=== PATIENT | female | born 1945 | race Caucasian/White ===

== ENCOUNTER 2021-10-15 17:13 | Inpatient (IN) ==
[2021-10-15] MEDS ORDERED: D5% in Water 1,000 ML IVC PRN (18:29)
[2021-10-15] MEDS ORDERED: *HR* Dextrose 50 % in Water (Syg) 50 ML SYRINGE IVP PRN (18:29)
[2021-10-15] MEDS ORDERED: Dextrose 4 GM Chewable Tablets PO PRN ×2 (18:29)
[2021-10-15] MEDS ORDERED: Insulin DETEMIR 100 UNIT/ML per UNIT SUBQ ONE (21:00)
[2021-10-15] MEDS ORDERED: Insulin LISPRO 300 UNITS/3 ML VIAL SUBQ SCH (21:00)
[2021-10-15] MEDS: carvediloL 25 MG TABLET PO SCH (21:39)
[2021-10-16] MEDS: hydrALAZINE 25 MG TABLET PO SCH ×3 (01:20→17:23)
[2021-10-16] MEDS ORDERED: *HR* Enoxaparin 40 MG/0.4 ML SYRINGE SQ SCH (04:15)
[2021-10-16 04:39] LABS: Basophils % 0.5 %; Eosinophils # 0.4 K/mcL (0.0-0.6); Eosinophils % 6.8 %; Hematocrit 30.3 % (35.3-44.9); Hemoglobin 9.7 g/dL (11.5-15.4); Immature Granulocytes % 0.2 % (0-4); Lymphocytes # 1.4 K/mcL (0.6-4.6); Lymphocytes % 23.2 %; Mean Corpuscular Hemoglobin 27.8 pg (28.0-33.3); Mean Corpuscular Volume 86.8 fL (83.0-100.0); Monocytes # 0.6 K/mcL (0.0-1.3); Monocytes % 9.3 %; Neutrophils # 3.5 K/mcL (1.6-8.9); Platelet Count 172 K/mcL (140-400); Red Blood Count 3.49 M/mcL (3.82-4.97); Red Cell Distribution Width 13.1 % (11.5-14.5); White Blood Count 5.9 K/mcL (4.3-11.1)
[2021-10-16 05:30] LABS: Albumin 3.4 g/dL (3.5-5.7); Albumin/Globulin Ratio 1.1 (1.1-2.2); Bilirubin,Total 0.4 mg/dL (0.3-1.0); Calcium 9.2 mg/dL (8.6-10.3); Globulin 3.1 g/dL (2.4-3.5); Magnesium 2.4 mg/dL (1.6-2.6); Potassium 4.1 mEq/L (3.5-5.1); Total Protein 6.5 g/dL (6.4-8.9)
[2021-10-16] MEDS: carvediloL 25 MG TABLET PO SCH ×2 (08:32→17:23)
[2021-10-16] MEDS: Aspirin Enteric Coated 81 MG Tablet PO SCH (08:33)
[2021-10-16] MEDS: NIFEdipine XL (24 HR) 30 MG TAB.ER.24 PO SCH (08:33)
[2021-10-16] MEDS: Torsemide 20 MG TABLET PO SCH (08:33)
[2021-10-16] MEDS: Isosorbide MONOnitrate (24 HR) 30 MG TAB.ER.24H PO SCH (08:33)
[2021-10-16] MEDS: Insulin LISPRO 300 UNITS/3 ML VIAL SUBQ SCH ×4 (08:33→20:35)
[2021-10-16] MEDS: Insulin DETEMIR 100 UNIT/ML X5UNITS SUBQ SCH ×2 (08:38→20:34)
[2021-10-16] MEDS ORDERED: amLODIPine 5 MG TABLET PO SCH (09:00)
[2021-10-16] MEDS ORDERED: HYDROCHLOROTHIAZIDE 25 MG PO SCH (09:00)
[2021-10-16] MEDS: polyethylene glycoL 3350 17 GM POWD.PACK PO SCH (17:23)
[2021-10-16] MEDS ORDERED: Insulin DETEMIR 100 UNIT/ML X5UNITS SUBQ SCH (21:00)
[2021-10-17] MEDS: hydrALAZINE 25 MG TABLET PO SCH ×3 (00:05→17:00)
[2021-10-17] MEDS: *HR* Enoxaparin 30 MG/0.3 ML SYRINGE SQ SCH (06:10)
[2021-10-17 07:21] LABS: Hematocrit 27.2 % (35.3-44.9); Hemoglobin 8.9 g/dL (11.5-15.4); Mean Corpuscular HGB Conc 32.7 g/dL (31.6-35.5); Mean Corpuscular Hemoglobin 28.1 pg (28.0-33.3); Mean Corpuscular Volume 85.8 fL (83.0-100.0); Mean Platelet Volume 11.2 fL (9.4-12.4); Platelet Count 168 K/mcL (140-400); Red Blood Count 3.17 M/mcL (3.82-4.97); Red Cell Distribution Width 13.2 % (11.5-14.5); White Blood Count 6.8 K/mcL (4.3-11.1)
[2021-10-17 07:54] LABS: Calcium 9.1 mg/dL (8.6-10.3); Magnesium 2.8 mg/dL (1.6-2.6); Potassium 4.4 mEq/L (3.5-5.1)
[2021-10-17] MEDS: NIFEdipine XL (24 HR) 30 MG TAB.ER.24 PO SCH (08:16)
[2021-10-17] MEDS: Isosorbide MONOnitrate (24 HR) 30 MG TAB.ER.24H PO SCH (08:17)
[2021-10-17] MEDS: carvediloL 25 MG TABLET PO SCH ×2 (08:17→17:00)
[2021-10-17] MEDS: polyethylene glycoL 3350 17 GM POWD.PACK PO SCH (08:18)
[2021-10-17] MEDS: Aspirin Enteric Coated 81 MG Tablet PO SCH (08:18)
[2021-10-17] MEDS: Insulin DETEMIR 100 UNIT/ML X5UNITS SUBQ SCH ×2 (08:26→21:03)
[2021-10-17] MEDS: Insulin LISPRO 300 UNITS/3 ML VIAL SUBQ SCH ×4 (08:27→21:00)
[2021-10-17] MEDS: Torsemide 20 MG TABLET PO SCH (10:31)
[2021-10-17] MEDS: Sennosides/Docusate Sodium TABLET PO PRN (20:59)
[2021-10-18] MEDS: hydrALAZINE 25 MG TABLET PO SCH ×4 (00:25→23:36)
[2021-10-18] MEDS: Acetaminophen 325 MG TABLET PO PRN ×2 (02:24→20:13)
[2021-10-18] MEDS: *HR* Enoxaparin 30 MG/0.3 ML SYRINGE SQ SCH (05:40)
[2021-10-18] MEDS: Insulin LISPRO 300 UNITS/3 ML VIAL SUBQ SCH ×4 (08:05→20:14)
[2021-10-18] MEDS: NIFEdipine XL (24 HR) 30 MG TAB.ER.24 PO SCH (08:08)
[2021-10-18] MEDS: Aspirin Enteric Coated 81 MG Tablet PO SCH (08:09)
[2021-10-18] MEDS: Torsemide 20 MG TABLET PO SCH (08:09)
[2021-10-18] MEDS: Isosorbide MONOnitrate (24 HR) 30 MG TAB.ER.24H PO SCH (08:09)
[2021-10-18] MEDS: carvediloL 25 MG TABLET PO SCH ×2 (08:09→16:19)
[2021-10-18] MEDS: polyethylene glycoL 3350 17 GM POWD.PACK PO SCH (08:10)
[2021-10-18] MEDS: Insulin DETEMIR 100 UNIT/ML X5UNITS SUBQ SCH ×2 (08:17→20:14)
[2021-10-19] MEDS: *HR* Enoxaparin 30 MG/0.3 ML SYRINGE SQ SCH (05:42)
[2021-10-19] MEDS: Insulin LISPRO 300 UNITS/3 ML VIAL SUBQ SCH ×5 (07:57→20:26)
[2021-10-19] MEDS: Acetaminophen 325 MG TABLET PO PRN ×2 (08:00→16:50)
[2021-10-19] MEDS: Torsemide 20 MG TABLET PO SCH (08:00)
[2021-10-19] MEDS: NIFEdipine XL (24 HR) 30 MG TAB.ER.24 PO SCH (08:00)
[2021-10-19] MEDS: Aspirin Enteric Coated 81 MG Tablet PO SCH (08:01)
[2021-10-19] MEDS: hydrALAZINE 25 MG TABLET PO SCH ×2 (08:01→16:51)
[2021-10-19] MEDS: carvediloL 25 MG TABLET PO SCH ×2 (08:01→16:51)
[2021-10-19] MEDS: Sennosides/Docusate Sodium TABLET PO PRN (08:01)
[2021-10-19] MEDS: Insulin DETEMIR 100 UNIT/ML X5UNITS SUBQ SCH ×2 (08:02→20:35)
[2021-10-19] MEDS: Isosorbide MONOnitrate (24 HR) 30 MG TAB.ER.24H PO SCH (08:02)
[2021-10-19 08:40] LABS: Hematocrit 29.8 % (35.3-44.9); Hemoglobin 9.6 g/dL (11.5-15.4); Mean Corpuscular HGB Conc 32.2 g/dL (31.6-35.5); Mean Corpuscular Hemoglobin 28.2 pg (28.0-33.3); Mean Corpuscular Volume 87.4 fL (83.0-100.0); Mean Platelet Volume 10.6 fL (9.4-12.4); Platelet Count 183 K/mcL (140-400); Red Blood Count 3.41 M/mcL (3.82-4.97); Red Cell Distribution Width 13.3 % (11.5-14.5); White Blood Count 5.9 K/mcL (4.3-11.1)
[2021-10-19 08:54] LABS: Albumin 3.6 g/dL (3.5-5.7); Albumin/Globulin Ratio 1.2 (1.1-2.2); Bilirubin,Total 0.4 mg/dL (0.3-1.0); Calcium 9.1 mg/dL (8.6-10.3); Magnesium 2.5 mg/dL (1.6-2.6); Potassium 4.5 mEq/L (3.5-5.1); Total Protein 6.6 g/dL (6.4-8.9)
[2021-10-19] MEDS: polyethylene glycoL 3350 17 GM POWD.PACK PO SCH (13:21)
[2021-10-20] MEDS: hydrALAZINE 25 MG TABLET PO SCH ×3 (00:37→15:13)
[2021-10-20] MEDS: Acetaminophen 325 MG TABLET PO PRN ×2 (02:34→07:42)
[2021-10-20] MEDS: *HR* Enoxaparin 30 MG/0.3 ML SYRINGE SQ SCH (06:50)
[2021-10-20] MEDS: NIFEdipine XL (24 HR) 30 MG TAB.ER.24 PO SCH (07:38)
[2021-10-20] MEDS: Isosorbide MONOnitrate (24 HR) 30 MG TAB.ER.24H PO SCH (07:38)
[2021-10-20] MEDS: carvediloL 25 MG TABLET PO SCH ×2 (07:38→15:13)
[2021-10-20] MEDS: Sennosides/Docusate Sodium TABLET PO PRN (07:39)
[2021-10-20] MEDS: Aspirin Enteric Coated 81 MG Tablet PO SCH (07:39)
[2021-10-20] MEDS: polyethylene glycoL 3350 17 GM POWD.PACK PO SCH (07:39)
[2021-10-20] MEDS: Insulin LISPRO 300 UNITS/3 ML VIAL SUBQ SCH ×4 (07:39→20:25)
[2021-10-20] MEDS: Torsemide 20 MG TABLET PO SCH (07:40)
[2021-10-20] MEDS: Insulin DETEMIR 100 UNIT/ML X5UNITS SUBQ SCH ×2 (08:07→20:25)
[2021-10-20] MEDS: *HR* HYDROcodone/Acet 5/325 mg TABLET PO PRN ×2 (12:58→20:32)
[2021-10-21] MEDS: hydrALAZINE 25 MG TABLET PO SCH ×3 (00:16→17:18)
[2021-10-21] MEDS: *HR* Enoxaparin 30 MG/0.3 ML SYRINGE SQ SCH (05:22)
[2021-10-21] MEDS: *HR* HYDROcodone/Acet 5/325 mg TABLET PO PRN ×2 (05:22→20:08)
[2021-10-21] MEDS: Insulin LISPRO 300 UNITS/3 ML VIAL SUBQ SCH ×4 (08:24→19:50)
[2021-10-21] MEDS: Torsemide 20 MG TABLET PO SCH (08:26)
[2021-10-21] MEDS: Isosorbide MONOnitrate (24 HR) 30 MG TAB.ER.24H PO SCH (08:26)
[2021-10-21] MEDS: Aspirin Enteric Coated 81 MG Tablet PO SCH (08:26)
[2021-10-21] MEDS: NIFEdipine XL (24 HR) 30 MG TAB.ER.24 PO SCH (08:26)
[2021-10-21] MEDS: carvediloL 25 MG TABLET PO SCH ×2 (08:26→17:18)
[2021-10-21] MEDS: polyethylene glycoL 3350 17 GM POWD.PACK PO SCH (08:27)
[2021-10-21] MEDS: Insulin DETEMIR 100 UNIT/ML X5UNITS SUBQ SCH ×2 (12:12→19:54)
[2021-10-21] MEDS: Sennosides/Docusate Sodium TABLET PO PRN (20:08)
[2021-10-22] MEDS: hydrALAZINE 25 MG TABLET PO SCH ×4 (00:49→23:41)
[2021-10-22] MEDS: Melatonin 3 MG TABLET PO PRN ×2 (00:58→22:02)
[2021-10-22 05:04] LABS: Basophils # 0.1 K/mcL (0.0-0.2); Basophils % 0.7 %; Eosinophils # 0.6 K/mcL (0.0-0.6); Eosinophils % 8.1 %; Hematocrit 26.5 % (35.3-44.9); Hemoglobin 8.6 g/dL (11.5-15.4); Immature Granulocytes % 0.3 % (0-4); Lymphocytes # 1.7 K/mcL (0.6-4.6); Lymphocytes % 25.7 %; Mean Corpuscular HGB Conc 32.5 g/dL (31.6-35.5); Mean Corpuscular Hemoglobin 28.5 pg (28.0-33.3); Mean Corpuscular Volume 87.7 fL (83.0-100.0); Mean Platelet Volume 10.7 fL (9.4-12.4); Monocytes # 0.6 K/mcL (0.0-1.3); Monocytes % 8.3 %; Neutrophils # 3.9 K/mcL (1.6-8.9); Platelet Count 172 K/mcL (140-400); Red Blood Count 3.02 M/mcL (3.82-4.97); Red Cell Distribution Width 13.4 % (11.5-14.5); Segmented Neutrophils % 56.9 %; White Blood Count 6.8 K/mcL (4.3-11.1)
[2021-10-22 05:18] LABS: Albumin 3.4 g/dL (3.5-5.7); Albumin/Globulin Ratio 1.2 (1.1-2.2); Bilirubin,Total 0.3 mg/dL (0.3-1.0); Calcium 8.9 mg/dL (8.6-10.3); Globulin 2.8 g/dL (2.4-3.5); Magnesium 3.4 mg/dL (1.6-2.6); Potassium 4.8 mEq/L (3.5-5.1); Total Protein 6.2 g/dL (6.4-8.9)
[2021-10-22] MEDS: *HR* HYDROcodone/Acet 5/325 mg TABLET PO PRN ×3 (06:47→19:31)
[2021-10-22] MEDS: *HR* Enoxaparin 30 MG/0.3 ML SYRINGE SQ SCH (06:47)
[2021-10-22] MEDS: Insulin LISPRO 300 UNITS/3 ML VIAL SUBQ SCH ×4 (07:54→19:23)
[2021-10-22] MEDS: carvediloL 25 MG TABLET PO SCH ×2 (07:54→16:03)
[2021-10-22] MEDS: polyethylene glycoL 3350 17 GM POWD.PACK PO SCH (07:54)
[2021-10-22] MEDS: NIFEdipine XL (24 HR) 30 MG TAB.ER.24 PO SCH (07:54)
[2021-10-22] MEDS: Torsemide 20 MG TABLET PO SCH (07:54)
[2021-10-22] MEDS: Isosorbide MONOnitrate (24 HR) 30 MG TAB.ER.24H PO SCH (07:55)
[2021-10-22] MEDS: Aspirin Enteric Coated 81 MG Tablet PO SCH (07:55)
[2021-10-22] MEDS: Insulin DETEMIR 100 UNIT/ML X5UNITS SUBQ SCH ×2 (10:58→19:24)
[2021-10-22] MEDS ORDERED: Insulin DETEMIR 100 UNIT/ML per UNIT SUBQ ONE (11:00)
[2021-10-23] MEDS: *HR* Enoxaparin 30 MG/0.3 ML SYRINGE SQ SCH (04:25)
[2021-10-23] MEDS: Sennosides/Docusate Sodium TABLET PO PRN (10:27)
[2021-10-23] MEDS: hydrALAZINE 25 MG TABLET PO SCH ×3 (10:27→23:50)
[2021-10-23] MEDS: *HR* HYDROcodone/Acet 5/325 mg TABLET PO PRN ×2 (10:27→16:45)
[2021-10-23] MEDS: Isosorbide MONOnitrate (24 HR) 30 MG TAB.ER.24H PO SCH (10:27)
[2021-10-23] MEDS: carvediloL 25 MG TABLET PO SCH ×2 (10:27→16:45)
[2021-10-23] MEDS: NIFEdipine XL (24 HR) 30 MG TAB.ER.24 PO SCH (10:27)
[2021-10-23] MEDS: Aspirin Enteric Coated 81 MG Tablet PO SCH (10:27)
[2021-10-23] MEDS: Insulin DETEMIR 100 UNIT/ML X5UNITS SUBQ SCH (10:28)
[2021-10-23] MEDS: Torsemide 20 MG TABLET PO SCH (10:28)
[2021-10-23] MEDS: polyethylene glycoL 3350 17 GM POWD.PACK PO SCH ×2 (10:28→20:10)
[2021-10-23] MEDS: Insulin LISPRO 300 UNITS/3 ML VIAL SUBQ SCH ×4 (10:28→19:24)
[2021-10-23 19:24] VITALS: O2SAT 97
[2021-10-23] MEDS: Acetaminophen 325 MG TABLET PO PRN (20:11)
[2021-10-24] MEDS: *HR* Enoxaparin 30 MG/0.3 ML SYRINGE SQ SCH (05:22)
[2021-10-24 07:26] VITALS: BP 190/68; PULSE 68; RESP 16; TEMP 97.5
[2021-10-24] MEDS: Insulin LISPRO 300 UNITS/3 ML VIAL SUBQ SCH ×2 (08:11→12:09)
[2021-10-24] MEDS: Aspirin Enteric Coated 81 MG Tablet PO SCH (08:12)
[2021-10-24] MEDS: NIFEdipine XL (24 HR) 30 MG TAB.ER.24 PO SCH (08:12)
[2021-10-24] MEDS: hydrALAZINE 25 MG TABLET PO SCH (08:12)
[2021-10-24] MEDS: Isosorbide MONOnitrate (24 HR) 30 MG TAB.ER.24H PO SCH (08:12)
[2021-10-24] MEDS: carvediloL 25 MG TABLET PO SCH (08:12)
[2021-10-24] MEDS: Torsemide 20 MG TABLET PO SCH (08:13)
[2021-10-24] MEDS: polyethylene glycoL 3350 17 GM POWD.PACK PO SCH (08:13)
[2021-10-24] MEDS ORDERED: Insulin DETEMIR 100 UNIT/ML X5UNITS SUBQ SCH (09:00)
== END 2021-10-24 14:20 | disposition home or self-care (01) | DRG 57 ==
LOC: INPGRE 17:15
PROVIDERS: ADMIT Family Medicine; ATTEND Family Medicine